=== PATIENT | female | born 1980 | race Caucasian/White ===

== ENCOUNTER → 2017-01-12 | Outpatient (CLI) | payer BC ==
[~2017-01-12] MED LIST: ACET-1311 PO; IBUP-1050 PO; PRENTAB26 PO
--- NOTE | 2017-01-12 09:01 | DIAGNOSTIC IMAGING REPORT ---
LEFT FOOT MIN 3 VIEWS CLINICAL HISTORY: LEFT FOOT PAIN pain COMPARISON: None. DISCUSSION: The bones and joint spaces appear intact. There is no evidence of fracture, dislocation or bony disease. There is no evidence for soft tissue swelling. IMPRESSION: Negative study. Electronically signed by: Warren nEgel M.D. 01/12/2017 9:00 AM Dictated Date/Time: 01/12/2017 8:59 AM
== END | disposition home or self-care (01) ==
LOC: C.RDSM 08:47
PROVIDERS: ATTEND Internal Medicine
DX: M79.672 Pain in left foot (principal)

== ENCOUNTER 2019-04-26 09:14 | Observation (INO) ==
[2019-04-26] MEDS ORDERED: KETOROLAC 30 MG/ML VIAL IV STA (09:50)
[2019-04-26] MEDS ORDERED: SODIUM CHLORIDE 0.9% 1000ML 1,000 ML IV ONE (09:50)
[2019-04-26] MEDS ORDERED: ONDANSETRON INJ 2 MG/ML 2 ML VIAL IV STA (09:50)
[2019-04-26 09:59] LABS: Hematocrit (blood only) 41.5 % (37-47); Hemoglobin 14.6 g/dL (12.0-16.0); Mean Corpuscular Hgb Conc 35.2 g/dL (32-36); Mean Corpuscular Volume 91.2 fL (80-100); Mean Platelet Volume 10.2 fL (7.4-10.4); Platelet Count 221 K/uL (130-400); RDW Coefficient of Variation 12.6 % (11.5-14.5); RDW Standard Deviation 41.9 fL (36.4-46.3); Red Blood Count 4.55 M/uL (4.2-5.4); White Blood Count 17.02 K/uL (4.8-10.8)
[2019-04-26 10:07] LABS: BUN Creatinine Ratio 14.2 (10-20); Calcium 9.2 mg/dl (8.5-10.1); Creatinine Clr Calc Pharmacy 113.5 ml/min; Est GFR (African American) 100.8; Est GFR (Non-African American) 86.9; Potassium 4.1 mmol/L (3.5-5.1)
[2019-04-26 10:10] LABS: Albumin Globulin Ratio 1.2 (0.9-2); Globulin 3.4 gm/dl (2.5-4.0); Total Protein 7.4 gm/dl (6.4-8.2)
[2019-04-26 10:21] LABS: Appearance Urine Clear (Clear); Bacteria Urine Automated 1+ (Negative); Bilirubin Urine Negative (Negative); Blood Urine Negative (Negative); Color Urine Dark Yellow; Epithelial Cell Urine Auto >30 /lpf (0-5); Glucose Urine UA Negative (Negative); Ketones Urine 2+ (Negative); Leukocyte Esterase Urine Trace (Negative); Nitrite Urine Negative (Negative); Protein Urine Negative (Negative); Specific Gravity Urine 1.024 (1.000-1.030); Urobilinogen Urine Negative (Negative)
[2019-04-26 10:21] LABS: Basophils # (auto) 0.03 K/uL (0-0.2); Basophils % (auto) 0.2 %; Eosinophils # (auto) 0.04 K/uL (0-0.5); Eosinophils % (auto) 0.2 %; Immature Granulocytes # (auto) 0.04 K/uL (0.00-0.02); Immature Granulocytes % (auto) 0.2 %; Lymphocytes # (auto) 1.04 K/uL (1.2-3.4); Lymphocytes % (auto) 6.1 %; Monocytes % (auto) 5.9 %; Neutrophils # (auto) 14.87 K/uL (1.4-6.5); Neutrophils % (auto) 87.4 %
[2019-04-26 10:23] LABS: Pregnancy Test, Urine Negative (Negative)
[2019-04-26] MEDS ORDERED: IOVERSOL 100ml IV PRN (10:32)
[2019-04-26 10:36] LABS: RBC Urine Automated 0-4 /hpf (0-4)
[2019-04-26] MEDS ORDERED: MoRPHine SULFATE 4 MG/ML 1 ML CARP\\VIAL IV STA (10:43)
[2019-04-26] MEDS ORDERED: cefOXitin 1,000 MG/50 ML BAG IV STA (10:43)
[2019-04-26] MEDS ORDERED: SODIUM CHLORIDE 0.9% 1000ML 1,000 ML IV SCH (10:45)
--- NOTE | 2019-04-26 10:45 | CT Scan Report ---
CT OF THE ABDOMEN AND PELVIS WITH CONTRAST CLINICAL HISTORY: Abdominal pain. COMPARISON STUDY: None. TECHNIQUE: Following IV administration of 94 mL of Optiray-320, axial images of the abdomen and pelvi s were obtained from the lung bases to the proximal femurs. Images were reviewed in the axial, sagitt al, and coronal planes. IV contrast was administered without complication. Automated exposure contro l was utilized for the study. A dose lowering technique was utilized adhering to the principles of A THANH. FINDINGS: Lung bases are clear. The liver, spleen, adrenal glands, kidneys and pancreas are normal. T here is no biliary or pancreatic ductal dilatation. There is no hydronephrosis. The appendix is dilat ed, measuring 1.4 cm in caliber. There is extensive periappendiceal infiltration and fluid. No free a ir is present. Gas appears to be within the appendix. These findings suggest perforated appendicitis. The appendix is retrocecal in location. No rim-enhancing fluid collection to suggest an abscess is i dentified. Dominant follicle within the left ovary is noted. There is trace fluid within the pelvis. No suspicious osseous lesions are present. There is no evidence for a bowel obstruction. IMPRESSION: Findings suggestive of perforated acute appendicitis. Dilated retrocecal appendix with extensive enmanuel appendiceal inflammation. Discussed with Dr. Brenal at time of dictation. Electronically signed by: Rubens Kevin M.D. 04/26/2019 10:44 AM
--- NOTE | 2019-04-26 11:51 | History & Physical Bridge Note ---
Date of Service April 26, 2019 History & Physical Bridge Note I have examined the patient, reviewed the History & Physical and in the interval since the performance of the History & Physical I have noted the following changes of clinical significance: no changes noted pt examined acute appendicitis plan patria kent open r and c explained to pt
--- NOTE | 2019-04-26 12:07 | History & Physical Report ---
Date of Service April 26, 2019 Assessment & Plan (1) Appendicitis: Possible perforated appendicitis. Will plan for laparoscopic appendectomy, possible open appendectomy this afternonn. Mefoxin was given in the ED. History of Present Illness Primary Care Provider: Azael Kirk, 39 y/o female with pain across her mid abdomen began yesterday afternoon, she also became bloated while at work. Pain localized to the RLQ and persisted this morning so she came to the ED. Had hot and cold flashes overnight. No previous abdominal surgery. Allergies Allergy/AdvReac Type Severity Reaction Status Date / Time Sulfa (Sulfonamide Allergy Intermediate HIVES Unverified 04/26/19 10:27 Antibiotics) bacitracin Allergy Mild REDNESS Unverified 04/26/19 10:27 neomycin Allergy Mild REDNESS Unverified 04/26/19 10:27 polymyxin B Allergy Mild REDNESS Unverified 04/26/19 10:27 BACTRIM Allergy Unknown Unknown Uncoded 04/26/19 10:27 Home Medications Home Medications Medication Instructions Recorded Confirmed Type bismuth subsalicylate 2 tab PO QID 04/26/19 04/26/19 History [Pepto-Bismol] calcium carbonate [Tums] 400 mg PO BID 04/26/19 04/26/19 History ibuprofen [Advil] 400 mg PO Q6H PRN 04/26/19 04/26/19 History Past Med/Surg History Medical History shoulder No pertinent family history Surgical History No pertinent past surgical history Family History Other No pertinent family history Social History Preferred Language: Haitian Communication Ability: Effective Visual Impairment: No Limitations Hearing Ability: Normal Live Truck Technician Required: No Beliefs That Will Affect Care: None Current Living Situation: Spouse and Family current occupational status: employed Other Information That Helps Us Care for You: No Feels Safe at Home: Yes Safety Concerns: Feels Safe At This Time Smoking Status: Never smoker Do You Dip or Chew Tobacco: No Hx Alcohol Use: Yes (socially) Alcohol type: wine Hx Substance Use: No Review of Systems Constitutional: + fever, + chills and + anorexia Gastrointestinal: + abdominal pain and + bloating Physical Exam Constitutional: WD/WN, vitals as above Respiratory: normal respiratory effort, lungs clear to auscultation Cardiovascular: RRR, no murmur, no edema Gastrointestinal (Abdomen): Inspection/Auscultation: + abdomen distended Percussion/Palpation: + abdomen tender and + guarding Skin: no rashes, warm and dry Results & Data Vital Signs (Past 12 Hours) Vital Signs Temp Pulse Pulse Resp BP BP Pulse Ox 04/26/19 11:50 74 16 127/69 99 04/26/19 11:00 79 16 138/74 99 04/26/19 09:19 36.9 C 86 18 126/83 98 (1) Appendicitis Appendicitis type: unspecified Qualified Code(s): K37 - Unspecified appendicitis
[2019-04-26] MEDS ORDERED: PROMETHAZINE HCL 12.5 MG in SODIUM CHLORIDE 0.9% 50 ML IV PRN (12:20)
[2019-04-26] MEDS ORDERED: ePHEDrine sulfate 50 MG/ML AMP IV PRN (12:20)
[2019-04-26] MEDS ORDERED: NALOXONE HCL 0.4 MG/1 ML VIAL/CARP IV PRN (12:20)
[2019-04-26] MEDS ORDERED: ONDANSETRON INJ 2 MG/ML 2 ML VIAL IV PRN ×2 (12:20→14:38)
[2019-04-26] MEDS ORDERED: FLUMAZENIL 0.1 MG/1 ML 10 ML VIAL IV PRN (12:20)
[2019-04-26] MEDS ORDERED: LABETALOL HCL IV 5 MG/ML 20ML IV PRN (12:20)
[2019-04-26] MEDS ORDERED: ATROPINE SULFATE 0.1 MG/ML 10ML SYR IV PRN (12:20)
--- NOTE | 2019-04-26 12:20 | Anesthesiology Consultation ---
Date of Service April 26, 2019 Assessment & Plan Chart Review Chart Review: Acceptable Risk for Surgery and Patient NOT seen in Pre Admission Testing Consults Requested none ASA [id number] Proposed Anesthesia Anesthesia Type: General Risk / Benefits Reviewed With: PT / POA / Parent / Guardian, Accepts Plan and Informed Consent Obtained History Surgery Operation Date: 04/26/19 08:35 Proposed Procedures p Laparoscopic Appendectomy, Possible Open Appendectomy - Mio Brooks MD Height/Weight Height: 6 ft Weight: 92.2 kg Allergies Allergy/AdvReac Type Severity Reaction Status Date / Time Sulfa (Sulfonamide Allergy Intermediate HIVES Unverified 04/26/19 12:13 Antibiotics) bacitracin Allergy Mild REDNESS Unverified 04/26/19 12:13 neomycin Allergy Mild REDNESS Unverified 04/26/19 12:13 polymyxin B Allergy Mild REDNESS Unverified 04/26/19 12:13 BACTRIM Allergy Unknown Unknown Uncoded 04/26/19 12:13 Medications Home Medications Medication Instructions Recorded Confirmed Last Taken bismuth subsalicylate 2 tab PO QID 04/26/19 04/26/19 04/25/19 [Pepto-Bismol] calcium carbonate [Tums] 400 mg PO BID 04/26/19 04/26/19 04/25/19 ibuprofen [Advil] 400 mg PO Q6H PRN 04/26/19 04/26/19 04/25/19 Active Medications Generic Name Dose Route Start Last Admin Trade Name Freq PRN Reason Stop Dose Admin Ioversol 94 ml 04/26/19 10:32 04/26/19 10:32 Optiray 320 100ml IV 04/30/19 10:31 94 ml ONCE PRN Administration Interaction Checking NPO Date Last Intake of Fluids: 04/26/19 Time Last Intake of Fluids: 07:00 Date Last Intake of Solids: 04/25/19 Time Last Intake of Solids: 18:30 Past Medical History Medical History shoulder No pertinent family history Exercise / Class Metabolic Activity II 4-5 Yardwork/Stairs/Walk up hill Past Family History Family History Other No pertinent family history Past Surgical History Surgical History No pertinent past surgical history Past Anesthesia History No Hx of Anesthesia Complications and No Family Hx of Anesthesia Complications History of PONV No Hx of PONV and No Hx of Motion Sickness Social History Smoking Status: Current some day smoker Do You Dip or Chew Tobacco: No Hx Alcohol Use: Yes (socially) Alcohol type: wine alcohol intake frequency: a few times a week Alcohol Intake Frequency Comment: 1-2 glasses on 3-4 days per week Hx Substance Use: No Physical Exam Vital Signs Last Vital Signs Temp 37.1 C 04/26/19 12:06 Pulse 80 04/26/19 12:06 Resp 18 04/26/19 12:06 BP 125/72 04/26/19 12:06 Pulse Ox 97 04/26/19 12:06 Constitutional + obese ENMT Mouth: no dentition abnormality Thyromental Distance: > or= 3.5 Finger Breadths Mallampati Class: II Neck normal visual inspection and trachea midline; neck extension not limited Respiratory normal respiratory effort Auscultation: lungs clear to auscultation bilaterally Cardiovascular Rate/Rhythm: regular rate and regular rhythm Heart Sounds: no murmur Musculoskeletal Spine: normal cervical ROM Neurologic moves all extremities Motor/Sensory: no sensory deficit Psychiatric Orientation: alert and oriented x 3 Testing Laboratory Results 04/26/19 09:35 04/26/19 09:35 Urine Color Dark Yellow 04/26/19 10:07 Urine Appearance Clear (Clear) 04/26/19 10:07 Urine pH 6.0 (4.5-7.5) 04/26/19 10:07 Ur Specific [place] 1.024 (1.000-1.030) 04/26/19 10:07 Urine Protein Negative (Negative) 04/26/19 10:07 Urine Glucose (UA) Negative (Negative) 04/26/19 10:07 Urine Ketones 2+ (Negative) H 04/26/19 10:07 Urine Nitrite Negative (Negative) 04/26/19 10:07 Ur Leukocyte Esterase Trace (Negative) H 04/26/19 10:07 Urine WBC (Auto) 5-10 /hpf (0-5) H 04/26/19 10:07 Urine RBC (Auto) 0-4 /hpf (0-4) 04/26/19 10:07 U Hyaline Cast (Auto) 5-10 /lpf (0-5) H 04/26/19 10:07 U Epithel Cells (Auto) >30 /lpf (0-5) H 04/26/19 10:07 Urine Bacteria (Auto) 1+ (Negative) H 04/26/19 10:07 Urine Test Negative (Negative) 04/26/19 10:07 04/26/19 10:07 Urine Test Negative
[2019-04-26] MEDS ORDERED: NEOSTIGMINE METHYLSULFATE 5 MG/5 ML SYR ONE (12:23)
[2019-04-26] MEDS ORDERED: fentaNYL citrate 100 MCG/2 ML VIAL ONE ×2 (12:23)
[2019-04-26] MEDS ORDERED: GLYCOPYRROLATE 0.2 MG/ML VIAL ONE (12:23)
[2019-04-26] MEDS ORDERED: PROPOFOL IV EMULSION 10 MG/ML 20 ML VIAL IV ONE (12:23)
[2019-04-26] MEDS ORDERED: LIDOCAINE HCL 2% 2 ML VIAL/AMP(20MG/ML) INFIL ONE (12:23)
[2019-04-26] MEDS ORDERED: ONDANSETRON INJ 2 MG/ML 2 ML VIAL ONE ×2 (12:23→13:14)
[2019-04-26] MEDS ORDERED: DEXAMETHASONE SOD INJ 4 MG/ML VIAL ONE (12:23)
[2019-04-26] MEDS ORDERED: MIDAZOLAM HCL 1 MG/ML 2ML VIAL ONE (12:23)
[2019-04-26] MEDS ORDERED: LIDOCAINE/EPINEPHRINE 1% 20 ML VIAL ONE (12:32)
--- NOTE | 2019-04-26 13:12 | Post Operative Brief Note ---
Immediate Post Op Note v1 Date of Surgery April 26, 2019 Pre & Post Diagnosis Operation Date: 04/26/19 08:35 Pre-Op Diagnosis: acute appendicitis Post-Op Diagnosis: acute appendicitis, not ruptured Procedure Operation Date: 04/26/19 08:35 Actual Procedures p Laparoscopic Appendectomy(Not Applicable) - Moi Brooks MD Surgeon Mio Brooks MD Package Pick Up b sunny menjivar Estimated Blood Loss 10 Findings Consistent with Post-Op Diagnosis Drains Dmitri Drain (19 [id number])
[2019-04-26] MEDS ORDERED: SUCCINYLCHOLINE CHLORIDE 20 MG/ML 10 ML VIAL ONE (13:14)
[2019-04-26] MEDS ORDERED: ROCURONIUM BROMIDE 10 MG/ML 5 ML VIAL ONE (13:14)
--- NOTE | 2019-04-26 13:34 | Operative Report ---
Post Operative Report Pre & Post Diagnosis Operation Date: 04/26/19 08:35 Pre-Op Diagnosis: acute appendicitis Post-Op Diagnosis: acute appendicitis, not ruptured Procedure Operation Date: 04/26/19 08:35 Actual Procedures p Laparoscopic Appendectomy(Not Applicable) - Mio Brooks MD The patient was brought into the operating theater general endotracheal anesth esia systemic antibiotics on board abdomen was prepped Betadine solution properly draped timeout was had patient identified small incision was made supraumbilically sufficient enough to place a Veress needle followed by CO2 followed by 5 mm trocar camera followed we had some preperitoneal insufflation characteristically jelly-like appearance this point we placed a 5 mm right upper quadrant trocar with preemptive local analgesic we rotated the patient to the left slight Trendelenburg to see an acutely inflamed right lower quadrant the cecum were able to elevate the cecal cap this patient has some accessory fatty tissue in that area just inferior to the ileum going into the cecum and has some fibrosis fibrinous exudate over the Of the cecal colon and retroperitoneal this point was able to elevate it more than see what I thought was the appendix acutely inflamed one in the retroperitoneal area we converted the 5 mm umbilical port by enlarging the incision used a Alysia clamp to open it then placed an 11 mm trocar and use this port and positioned it intermediate between the symphysis pubis in the umbilical area under direct visualization with preemptive local analgesia a 5 mm inserted the camera was placed in that area and using the umbilical port in the right upper quadrant port was able to dissect up bluntly and acutely nonruptured appendix. We then created a window between the base of the appendix and the mesentery we were able then under direct visualization of the clip this with 10 mm clips completely freeing it and elevating the appendix from the cecum base. The base of the appendix was slightly thickened but not characteristically in acutely inflamed we at this point I was able to fire a blue application of the KRISH completely elevated the appendix from the cecal area. We checked the line and elliott on the cecum and appeared to be free of any oozing. The terminal volume was full well away from it. The appendix was then placed in an Endopouch and taken out intact through the umbilical port the area was irrigated and hemostasis was satisfactory the appendix grossly was not ruptured although radiographically may have been I recommended I put a plan to place a Dmitri drain which we did in the right gutter pelvic area coming out through the 5 mm port suprapubic area. We attached to skin edge with 2-0 silk individual trochars removed last the umbilical trocar closed the fascial stitch of the umbilical opening with 0 Vicryl interrupted [id number] 4-0 Monocryl subcuticular Steri-Strips applied procedure was tolerated well by the patient estimated blood loss 10 cc addendum Sekou menjivar present throughout the procedure and help with exposure camera work and retraction thank you Surgeon Mio Brooks MD Caramel Coloring Operator sekou menjivar Estimated Blood Loss 10 Findings Consistent with Post-Op Diagnosis Specimens appendix Description of Procedure merda I attest to the content of the Intraoperative Record and any orders documented therein. Any exceptions are noted below.
[2019-04-26] MEDS: HYDROmorphone INJ 1 MG/ML SYRINGE IV PRN ×4 (13:35→13:50)
--- NOTE | 2019-04-26 14:22 | Anesthesiology Progress Note ---
Date of Service April 26, 2019 Anesthesia Post Procedure Vital Signs Vital Signs: Temp Pulse Pulse Pulse Resp BP BP 04/26/19 14:15 36.6 C 63 16 109/61 04/26/19 14:05 63 16 119/69 04/26/19 13:55 68 16 116/69 04/26/19 13:45 69 16 117/63 04/26/19 13:35 69 16 120/69 04/26/19 13:28 36.9 C 77 16 116/60 04/26/19 12:06 37.1 C 80 18 125/72 04/26/19 11:50 74 16 127/69 04/26/19 11:00 79 16 138/74 04/26/19 09:19 36.9 C 86 18 126/83 Pulse Ox 04/26/19 14:15 95 04/26/19 14:05 96 04/26/19 13:55 93 04/26/19 13:45 100 04/26/19 13:35 100 04/26/19 13:28 100 04/26/19 12:06 97 04/26/19 11:50 99 04/26/19 11:00 99 04/26/19 09:19 98 Pain Intensity Abdomen: Pain Intensity: 6 Transfer of Care Handoff Completed per policy Notes Mental Status: alert / awake / arousable and participated in evaluation Patient Amnestic to Procedure: Yes Nausea / Vomiting: adequately controlled Pain: adequately controlled Airway Patency, RR, SpO2: stable & adequate BP & HR: stable & adequate Hydration State: stable & adequate Anesthetic Complications: no major complications apparent and Pt Satisfied with anesthetic care
[2019-04-26] MEDS ORDERED: MoRPHine SULFATE 4 MG/ML 1 ML CARP\\VIAL IV PRN (14:38)
[2019-04-26] MEDS ORDERED: MoRPHine SULFATE 2 MG/ML CARP IV PRN (14:38)
[2019-04-26] MEDS: cefOXitin 2,000 MG in DEXTROSE 5% 50 ML IV SCH ×2 (15:43→21:21)
[2019-04-26] MEDS: OXYCODONE/ACETAMINOPHEN 5mg/325mg TAB PO PRN ×2 (16:28→21:22)
--- NOTE | 2019-04-26 17:32 | Emergency Department Note ---
Entered by Charis Hoyos acting as a scribe for Garry Bernal MD History of Present Illness General Chief complaint: Abdominal Pain Stated complaint: APPENDICITIS Time Seen by Provider: 04/26/19 09:48 Source: patient Mode of arrival: ambulatory Limitations: no limitations History of Present Illness Onset (ago): day(s) (1200 yesterday) Location: abdomen (right lower) Pain Consistency: + other (worsening) Maximum Pain Intensity: 5 Quality: + other (She states that by the time she got home from work, her pants didnt fit anymore. ) Exacerbated By: + none (She states that she took Tylenol PM last night, which di d not help to alleviate her pain. ) Associated symptoms: + nausea/vomiting (The patient complains of nausea. The patient denies vomiting. ) and + other (The patient denies urinary symptoms and bowel symptoms. ) The patient is a 39 white female w/ PMHx shoulder who presents to the ED w/ CC of worsening right lower abdominal pain beginning 1200 yesterday. She states that by the time she got home from work, her pants did not fit anymore. The patient complains of nausea. The patient denies vomiting, urinary symptoms, and bowel symptoms. She states that she took Tylenol PM last night, which did not help to alleviate her pain. The patient notes that her last menstrual cycle was 21 days ago. The patient notes that she drinks socially. Home Medications Home Medications Medication Instructions Recorded Confirmed Type bismuth subsalicylate 2 tab PO QID 04/26/19 04/26/19 History [Pepto-Bismol] calcium carbonate [Tums] 400 mg PO BID 04/26/19 04/26/19 History ibuprofen [Advil] 400 mg PO Q6H PRN 04/26/19 04/26/19 History Allergies Allergy/AdvReac Type Severity Reaction Status Date / Time Sulfa (Sulfonamide Allergy Intermediate HIVES Unverified 04/26/19 12:13 Antibiotics) bacitracin Allergy Mild REDNESS Unverified 04/26/19 12:13 neomycin Allergy Mild REDNESS Unverified 04/26/19 12:13 polymyxin B Allergy Mild REDNESS Unverified 04/26/19 12:13 BACTRIM Allergy Unknown Unknown Uncoded 04/26/19 12:13 Past Med/Surg History Medical History shoulder No pertinent family history Surgical History No pertinent past surgical history Family History Other No pertinent family history Social History Preferred Language: Tongan Communication Ability: Effective Visual Impairment: No Limitations Hearing Ability: Normal [employer] Required: No Beliefs That Will Affect Care: None Current Living Situation: Spouse and Family current occupational status: employed Other Information That Helps Us Care for You: No Feels Safe at Home: Yes Safety Concerns: Feels Safe At This Time Smoking Status: Current some day smoker Do You Dip or Chew Tobacco: No Hx Alcohol Use: Yes (socially) Alcohol type: wine Hx Substance Use: No Review of Systems See HPI for pertinent positives & negatives. and A total of 10 systems reviewed and were otherwise negative Physical Exam Vital Signs Vital Signs - 24 hr 04/26/19 09:19 04/26/19 11:00 04/26/19 11:36 Temperature 36.9 C Temperature Source Oral Sepsis Recent Fever Within 48 Hours No Sepsis New/Unexplained Change in Mental Status No Sepsis Action Taken by Nursing No Action Required Pulse Rate 86 Pulse Rate [Apical] Pulse Rate [Finger] 79 Pulse Rhythm [Apical] Pulse Rhythm [Finger] Pulse Strength [Finger] Respiratory Rate 18 16 Respiratory Effort / Characteristics Non-Labored Respiratory Depth Normal Respiratory Pattern Blood Pressure 126/83 Blood Pressure [Left Arm] 138/74 Blood Pressure Mean 97 Blood Pressure Mean [Left Arm] 95 Blood Pressure Position [Left Arm] Pulse Oximetry 98 99 Oxygen Delivery Method Room Air Room Air Room Air Oxygen Flow Rate 04/26/19 11:50 04/26/19 12:06 04/26/19 13:28 Temperature 37.1 C 36.9 C Temperature Source Oral Temporal Artery Scan Sepsis Recent Fever Within 48 Hours Sepsis New/Unexplained Change in Mental Status Sepsis Action Taken by Nursing Pulse Rate 74 Pulse Rate [Apical] 77 Pulse Rate [Finger] 80 Pulse Rhythm [Apical] Regular Pulse Rhythm [Finger] Regular Pulse Strength [Finger] Normal Respiratory Rate 16 18 16 Respiratory Effort / Characteristics Non-Labored Spontaneous Non-Labored Spontaneous Respiratory Depth Normal Normal Respiratory Pattern Regular Regular Blood Pressure 127/69 Blood Pressure [Left Arm] 125/72 116/60 Blood Pressure Mean Blood Pressure Mean [Left Arm] 89 78 Blood Pressure Position [Left Arm] Lying Semi-fowlers Pulse Oximetry 99 97 100 Oxygen Delivery Method Room Air Room Air Oxymask Oxygen Flow Rate 10 GENERAL: Mildly uncomfortable in appearance, well nourished, NAD, non-toxic. EYE EXAM: Normal conjunctiva. PERRL, no anisocoria and EOM's grossly intact w/o pain. OROPHARYNX: Moist mucus membranes. Grossly normal dentition. NECK: Supple, no nuchal rigidity, no adenopathy, non-tender. no signs of meningismus. LUNGS: Clear to auscultation. Normal chest wall mechanics. HEART: NSR, no MRG. ABDOMEN: Abdomen soft, right sided abdominal pain, normo-active bowel sounds, no masses, no rebound or guarding, negative obturator, positive psoas. BACK: No CVA TTP. SKIN: No rashes and no bruising. UPPER EXTREMITIES: Upper extremities are grossly normal. LOWER EXTREMITIES: No pitting edema. No calf pain. NEURO EXAM: A&O x3, cranial nerves II-XII grossly intact, normal speech, moves all 4 extremities on command w/o issue. Course 0952: Past medical records reviewed. The patient was evaluated in room B5. A complete history and physical examination was performed. 1042: The patient has appendicitis. 1043: Call out to general surgery. 1051: I updated the patient on the results of her scans. 1109: I re-paged surgery. 1124: I reviewed the patient's case with Juan Jose Tavares PA-C General Surgery. Consultations Consultation #1: [id number]: I reviewed the patient's case with Juan Jose Tvaares PA-C General Surgery. Time: 11:24 Administered Medications Cefoxitin Sodium 2,000 mg/ (Dextrose) 60 mls @ 100 mls/hr IV Q6H TEETEE Stop: 04/27/19 14:37 Last Infusion: 04/26/19 16:24 Dose: 0 mls/hr Documented by: [id number] Admin: 04/26/19 15:43 Dose: 100 mls/hr Documented by: [id number] Oxycodone/Acetaminophen (Percocet 5mg/325mg) 1 tab PO Q4H PRN PRN Reason: MODERATE Pain (Scale 4,5,6) Stop: 05/10/19 14:37 Last Admin: 04/26/19 16:28 Dose: 1 tab Documented by: [id number] Discontinued Medications Hydromorphone HCl (Dilaudid) 0.25 mg IV Q5M PRN PRN Reason: PACU Use Only-Pain Stop: 04/26/19 17:20 Last Admin: 04/26/19 13:50 Dose: 0.25 mg Documented by: [id number] Admin: 04/26/19 13:45 Dose: 0.25 mg Documented by: [id number] Admin: 04/26/19 13:40 Dose: 0.25 mg Documented by: [id number] Admin: 04/26/19 13:35 Dose: 0.25 mg Documented by: [id number] Sodium Chloride (Nss 1000ml) 1,000 mls @ 999 mls/hr IV .Q1H1M ONE Stop: 04/26/19 10:50 Last Infusion: 04/26/19 11:13 Dose: 0 mls/hr Documented by: [id number] Admin: 04/26/19 10:05 Dose: 999 mls/hr Documented by: [id number] Cefoxitin Sodium (Mefoxin) 1,000 mg in 50 mls @ 100 mls/hr IV NOW STA Stop: 04/26/19 11:12 Last Infusion: 04/26/19 11:31 Dose: 0 mls/hr Documented by: [id number] Admin: 04/26/19 10:58 Dose: 100 mls/hr Documented by: [id number] Sodium Chloride (Nss 1000ml) 1,000 mls @ 125 mls/hr IV .Q8H TEETEE Stop: 05/26/19 10:44 Last Admin: 04/26/19 14:46 Dose: Not Given Documented by: [id number] Promethazine HCl 12.5 mg/ (Sodium Chloride) 50.5 mls @ 204 mls/hr IV ONCE PRN PRN Reason: PACU Use Only-Nausea/Vomiting Stop: 04/26/19 17:21 Last Infusion: 04/26/19 14:46 Dose: 0 mls/hr Documented by: [id number] Admin: 04/26/19 13:57 Dose: 204 mls/hr Documented by: [id number] Ioversol (Optiray 320 100ml) 94 ml IV ONCE PRN PRN Reason: Interaction Checking Stop: 04/30/19 10:31 Last Admin: 04/26/19 10:32 Dose: 94 ml Documented by: [id number] Ketorolac Tromethamine (Toradol) 30 mg IV NOW STA Stop: 04/26/19 09:51 Last Admin: 04/26/19 10:04 Dose: 30 mg Documented by: [id number] Lidocaine/Epinephrine (Xylocaine/Epinephrine 1%) Confirm Administered Dose 20 ml .ROUTE .STK-MED ONE Stop: 04/26/19 12:33 Last Admin: 04/26/19 13:06 Dose: 10 ml Documented by: [id number] Morphine Sulfate (Morphine Sulfate) 4 mg IV NOW STA Stop: 04/26/19 10:44 Last Admin: 04/26/19 11:46 Dose: Not Given Documented by: [id number] Ondansetron HCl (Zofran) 4 mg IV NOW STA Stop: 04/26/19 09:51 Last Admin: 04/26/19 10:04 Dose: 4 mg Documented by: [id number] Medical Decision Making Differential Diagnosis Differential diagnoses: Appendicitis, diverticulitis, PUD, biliary pathology, UTI, pancreatitis, obstruction, mesenteric ischemia, aortic pathology, infections, inflammatory bowel disease, renal colic, as well as others were entertained. Medical Records Attestation: I reviewed the patient's medical records. Home Medications Current Medication List: was personally reviewed by me Laboratory Data Attestation: I reviewed the patient's lab results. Result diagrams: 04/26/19 09:35 04/26/19 09:35 Lab Results 04/26/19 04/26/19 04/26/19 Range/Units 09:35 09:35 10:07 WBC 17.02 H (4.8-10.8) K/uL RBC 4.55 (4.2-5.4) M/uL Hgb 14.6 (12.0-16.0) g/dL Hct 41.5 (37-47) % MCV 91.2 (80-100) fL MCH 32.1 (25-34) pg MCHC 35.2 (32-36) g/dL RDW Std Deviation 41.9 (36.4-46.3) fL RDW Coeff of Den 12.6 (11.5-14.5) % Plt Count 221 (130-400) K/uL MPV 10.2 (7.4-10.4) fL Immature Gran % (Auto) 0.2 % Neut % (Auto) 87.4 % Lymph % (Auto) 6.1 % [place] % (Auto) 5.9 % Eos % (Auto) 0.2 % Baso % (Auto) 0.2 % Immature Gran # (Auto) 0.04 H (0.00-0.02) K/uL Neut # (Auto) 14.87 H (1.4-6.5) K/uL Lymph # (Auto) 1.04 L (1.2-3.4) K/uL [place] # (Auto) 1.00 H (0.11-0.59) K/uL Eos # (Auto) 0.04 (0-0.5) K/uL Baso # (Auto) 0.03 (0-0.2) K/uL Sodium 139 (136-145) mmol/L Potassium 4.1 (3.5-5.1) mmol/L Chloride 106 (98-107) mmol/L Carbon Dioxide 27 (21-32) mmol/L Anion Gap 6.0 (3-11) BUN 12 (7-18) mg/dl Creatinine 0.84 (0.6-1.2) mg/dl Est Cr Clr Drug Dosing 113.5 ml/min Est GFR ( Amer) 100.8 Est GFR (Non-Af Amer) 86.9 BUN/Creatinine Ratio 14.2 (10-20) Glucose 113 H (70-99) mg/dl Calcium 9.2 (8.5-10.1) mg/dl Total Bilirubin 1.0 (0.2-1) mg/dl AST 12 L (15-37) U/L ALT 23 (12-78) U/L Alkaline Phosphatase 68 (45-117) U/L Total Protein 7.4 (6.4-8.2) gm/dl Albumin 4.0 (3.4-5.0) gm/dl Globulin 3.4 (2.5-4.0) gm/dl Albumin/Globulin Ratio 1.2 (0.9-2) Lipase 74 (73-393) U/L Urine Color Dark Yellow Urine Appearance Clear (Clear) Urine pH 6.0 (4.5-7.5) Ur Specific Mather 1.024 (1.000-1.030) Urine Protein Negative (Negative) Urine Glucose (UA) Negative (Negative) Urine Ketones 2+ H (Negative) Urine Blood Negative (Negative) Urine Nitrite Negative (Negative) Urine Bilirubin Negative (Negative) Urine Urobilinogen Negative (Negative) Ur Leukocyte Esterase Trace H (Negative) Urine WBC (Auto) 5-10 H (0-5) /hpf Urine RBC (Auto) 0-4 (0-4) /hpf U Hyaline Cast (Auto) 5-10 H (0-5) /lpf U Epithel Cells (Auto) >30 H (0-5) /lpf Urine Bacteria (Auto) 1+ H (Negative) Ur Renal Epithelial Cell Not Reportable Urine Yeast Present A (None Prsent) Urine Test (Negative) 04/26/19 Range/Units 10:07 WBC (4.8-10.8) K/uL RBC (4.2-5.4) M/uL Hgb (12.0-16.0) g/dL Hct (37-47) % MCV (80-100) fL MCH (25-34) pg MCHC (32-36) g/dL RDW Std Deviation (36.4-46.3) fL RDW Coeff of Den (11.5-14.5) % Plt Count (130-400) K/uL MPV (7.4-10.4) fL Immature Gran % (Auto) % Neut % (Auto) % Lymph % (Auto) % [place] % (Auto) % Eos % (Auto) % Baso % (Auto) % Immature Gran # (Auto) (0.00-0.02) K/uL Neut # (Auto) (1.4-6.5) K/uL Lymph # (Auto) (1.2-3.4) K/uL [place] # (Auto) (0.11-0.59) K/uL Eos # (Auto) (0-0.5) K/uL Baso # (Auto) (0-0.2) K/uL Sodium (136-145) mmol/L Potassium (3.5-5.1) mmol/L Chloride (98-107) mmol/L Carbon Dioxide (21-32) mmol/L Anion Gap (3-11) BUN (7-18) mg/dl Creatinine (0.6-1.2) mg/dl Est Cr Clr Drug Dosing ml/min Est GFR ( Amer) Est GFR (Non-Af Amer) BUN/Creatinine Ratio (10-20) Glucose (70-99) mg/dl Calcium (8.5-10.1) mg/dl Total Bilirubin (0.2-1) mg/dl AST (15-37) U/L ALT (12-78) U/L Alkaline Phosphatase (45-117) U/L Total Protein (6.4-8.2) gm/dl Albumin (3.4-5.0) gm/dl Globulin (2.5-4.0) gm/dl Albumin/Globulin Ratio (0.9-2) Lipase (73-393) U/L Urine Color Urine Appearance (Clear) Urine pH (4.5-7.5) Ur Specific Mather (1.000-1.030) Urine Protein (Negative) Urine Glucose (UA) (Negative) Urine Ketones (Negative) Urine Blood (Negative) Urine Nitrite (Negative) Urine Bilirubin (Negative) Urine Urobilinogen (Negative) Ur Leukocyte Esterase (Negative) Urine WBC (Auto) (0-5) /hpf Urine RBC (Auto) (0-4) /hpf U Hyaline Cast (Auto) (0-5) /lpf U Epithel Cells (Auto) (0-5) /lpf Urine Bacteria (Auto) (Negative) Ur Renal Epithelial Cell Urine Yeast (None Prsent) Urine Test Negative (Negative) Imaging Data Radiologist's Impression: Radiology results as stated below per my review and the radiologist's interpretation: CT OF THE ABDOMEN AND PELVIS WITH CONTRAST CLINICAL HISTORY: Abdominal pain. COMPARISON STUDY: None. TECHNIQUE: Following IV administration of 94 mL of Optiray-320, axial images of the abdomen and pelvis were obtained from the lung bases to the proximal femurs. Images were reviewed in the axial, sagittal, and coronal planes. IV contrast was administered without complication. Automated exposure control was utilized for the study. A dose lowering technique was utilized adhering to the principles of ALARA. FINDINGS: Lung bases are clear. The liver, spleen, adrenal glands, kidneys and pancreas are normal. There is no biliary or pancreatic ductal dilatation. There is no hydronephrosis. The appendix is dilated, measuring 1.4 cm in caliber. There is extensive periappendiceal infiltration and fluid. No free air is present. Gas appears to be within the appendix. These findings suggest perforated appendicitis. The appendix is retrocecal in location. No rim- enhancing fluid collection to suggest an abscess is identified. Dominant follicle within the left ovary is noted. There is trace fluid within the pelvis. No suspicious osseous lesions are present. There is no evidence for a bowel obstruction. IMPRESSION: Findings suggestive of perforated acute appendicitis. Dilated retrocecal appendix with extensive periappendiceal inflammation. Discussed with Dr. Bernal at time of dictation. Electronically signed by: Rubens Kevin M.D. 04/26/2019 10:44 AM Dictated: 04/26/19 1038 Transcribed: 04/26/19 1038 Blood Pressure Blood Pressure Findings: Normal blood pressure MDM Narrative The patient is a 39 white female w/ PMHx shoulder who presents to the ED w/ CC of worsening right lower abdominal pain beginning 1200 yesterday. Patient was seen and evaluated the bedside. The patient was complaining some right-sided lower abdominal discomfort beginning yesterday. The patient is tender. Patient did have blood work completed which shows a white count of 17. The patient's other blood work is fairly unremarkable. Patient's CT scan does show concern for ruptured appendicitis. Patient was ordered IV fluids to be n.p.o. and additional medications for pain control. Antibiotic's were ordered. I did speak the on-call surgeon who agreed to evaluate the patient take the patient to the OR. Impression & Plan Appendicitis, Abdominal pain Discharge Plan Visit Data *Final* Discharge Date/Time: 04/26/19 11:52 Chief Complaint: Abdominal Pain Stated Complaint: APPENDICITIS ED Provider: Garry Bernal Discharge Problem: Appendicitis, Abdominal pain Patient Disposition: Still a Patient Discharge Instructions Interventions: ED Discharge Assessment Last Done: 04/26/19 11:50 Discharge Problem: Appendicitis Qualifiers: Appendicitis type: unspecified Qualified Code(s): K37 - Unspecified appendicitis Abdominal pain Qualifiers: Abdominal location: right lower quadrant Qualified Code(s): R10.31 - Right lower quadrant pain The scribe's documentation has been prepared under my direction and personally reviewed by me in its entirety. I confirm that the note above accurately reflects all work, treatment, procedures, and medical decision making performed by me.
[2019-04-26] MEDS: ACETAMINOPHEN 325 MG TAB PO PRN (19:19)
[2019-04-26] MEDS: LACTATED RINGER'S 1,000 ML IV SCH (21:21)
[2019-04-27] MEDS: OXYCODONE/ACETAMINOPHEN 5mg/325mg TAB PO PRN ×3 (02:50→13:55)
[2019-04-27] MEDS: cefOXitin 2,000 MG in DEXTROSE 5% 50 ML IV SCH ×2 (02:50→11:20)
[2019-04-27] MEDS: ACETAMINOPHEN 325 MG TAB PO PRN (06:04)
[2019-04-27 06:36] LABS: Basophils # (auto) 0.01 K/uL (0-0.2); Basophils % (auto) 0.1 %; Eosinophils # (auto) 0.05 K/uL (0-0.5); Eosinophils % (auto) 0.4 %; Hematocrit (blood only) 34.2 % (37-47); Hemoglobin 11.9 g/dL (12.0-16.0); Immature Granulocytes # (auto) 0.04 K/uL (0.00-0.02); Immature Granulocytes % (auto) 0.3 %; Lymphocytes # (auto) 1.18 K/uL (1.2-3.4); Lymphocytes % (auto) 9.5 %; Mean Corpuscular Hgb Conc 34.8 g/dL (32-36); Mean Corpuscular Volume 91.9 fL (80-100); Monocytes # (auto) 0.99 K/uL (0.11-0.59); Neutrophils # (auto) 10.17 K/uL (1.4-6.5); Neutrophils % (auto) 81.7 %; Platelet Count 200 K/uL (130-400); RDW Coefficient of Variation 12.8 % (11.5-14.5); Red Blood Count 3.72 M/uL (4.2-5.4); White Blood Count 12.44 K/uL (4.8-10.8)
[2019-04-27] MEDS: LACTATED RINGER'S 1,000 ML IV SCH ×2 (06:52→12:16)
[2019-04-27 07:14] LABS: BUN Creatinine Ratio 10.2 (10-20); Calcium 8.4 mg/dl (8.5-10.1); Creatinine Clr Calc Pharmacy 136.2 ml/min; Est GFR (African American) 125.6; Est GFR (Non-African American) 108.4; Potassium 3.8 mmol/L (3.5-5.1)
--- NOTE | 2019-04-27 08:24 | Anesthesiology Progress Note ---
Date of Service April 27, 2019 Anesthesia Post Procedure Vital Signs Vital Signs: Temp Pulse Pulse Pulse Pulse Resp BP 04/27/19 07:04 36.8 C 69 16 04/27/19 02:40 37.1 C 62 14 04/26/19 19:52 37.1 C 74 18 04/26/19 17:39 36.7 C 75 16 04/26/19 16:32 36.7 C 81 18 04/26/19 15:27 37.1 C 72 16 04/26/19 15:00 36.9 C 04/26/19 14:38 37 C 66 16 04/26/19 14:15 36.6 C 63 16 04/26/19 14:05 63 16 04/26/19 13:55 68 16 04/26/19 13:45 69 16 04/26/19 13:35 69 16 04/26/19 13:28 36.9 C 77 16 04/26/19 12:06 37.1 C 80 18 04/26/19 11:50 74 16 127/69 04/26/19 11:00 79 16 04/26/19 09:19 36.9 C 86 18 126/83 BP BP Pulse Ox 04/27/19 07:04 114/71 96 04/27/19 02:40 110/55 L 97 04/26/19 19:52 100/62 95 04/26/19 17:39 110/76 97 04/26/19 16:32 121/75 96 04/26/19 15:27 106/67 98 04/26/19 15:00 115/74 98 04/26/19 14:38 107/66 98 04/26/19 14:15 109/61 95 04/26/19 14:05 119/69 96 04/26/19 13:55 116/69 93 04/26/19 13:45 117/63 100 04/26/19 13:35 120/69 100 04/26/19 13:28 116/60 100 04/26/19 12:06 125/72 97 04/26/19 11:50 99 04/26/19 11:00 138/74 99 04/26/19 09:19 98 Pain Intensity Abdomen: Pain Intensity: 3 Notes Mental Status: alert / awake / arousable and participated in evaluation Patient Amnestic to Procedure: Yes Nausea / Vomiting: adequately controlled Pain: adequately controlled Airway Patency, RR, SpO2: stable & adequate BP & HR: stable & adequate Hydration State: stable & adequate Anesthetic Complications: no major complications apparent
--- NOTE | 2019-04-27 10:31 | Surgery Progress Note ---
Date of Service April 27, 2019 Assessment & Plan (1) Appendicitis: POD 1 lap appy seen with Dr. Cecilia cao drain removed d/c home on po abx Subjective advancing diet, ambulating Physical Exam Gastrointestinal (Abdomen): Inspection/Auscultation: + abdominal surgical incision (dry) and + abdominal surgical drain present (10 cc serous); abdomen not distended Results & Data Vital Signs (Past 12 Hours) Vital Signs Temp Pulse Resp BP Pulse Ox 04/27/19 07:04 36.8 C 69 16 114/71 96 04/27/19 02:40 37.1 C 62 14 110/55 L 97 (1) Appendicitis Appendicitis type: unspecified Qualified Code(s): K37 - Unspecified appendicitis
--- NOTE | 2019-04-27 11:43 | Discharge Summary ---
Date of Service April 27, 2019 Admission HPI Per Admitting Provider 39 y/o female with pain across her mid abdomen began yesterday afternoon, she also became bloated while at work. Pain localized to the RLQ and persisted this morning so she came to the ED. Had hot and cold flashes overnight. No previous abdominal surgery. Principal Diagnosis 1. Acute appendicitis Discharge Exam Gastrointestinal (Abdomen) Inspection/Auscultation: + abdominal surgical incision (clean, dry) and + abdominal surgical drain present (10 cc serous) Discharge Data Allergies Allergy/AdvReac Type Severity Reaction Status Date / Time Sulfa (Sulfonamide Allergy Intermediate HIVES Unverified 04/26/19 12:13 Antibiotics) bacitracin Allergy Mild REDNESS Unverified 04/26/19 12:13 neomycin Allergy Mild REDNESS Unverified 04/26/19 12:13 polymyxin B Allergy Mild REDNESS Unverified 04/26/19 12:13 BACTRIM Allergy Unknown Unknown Uncoded 04/26/19 12:13 Consultations 04/26/19 10:43 ED Decision to Admit Stat Procedures Performed Operation Date: 04/26/19 08:35 Actual Procedures p Laparoscopic Appendectomy(Not Applicable) - Mio Brooks MD Ordered Studies 04/26/19 09:50 CT abd pelvis IV con only Stat Hospital Course (1) Appendicitis: 39 y/o female presented to the ED with 1 day history of abdominal pain localizing the RLQ. White cell count was 17,[address] was consistent with appendicitis, possibly perforated. She was taken to the operating room for laparoscopic appendectomy. She did have appendicitis but was not perforated. A dmitri drain was placed given the amount of inflammation. She was observed overnight on the surgical floor and continued on Mefoxin. Her white count improved to 12,000 the next morning. Dmitri drainage was minimal and was serous and the drain was removed. She was able to increase diet and activity during the day and was stable for discharge in the afternoon on oral antibiotics. Total Time Total Time Spent Total Time Spent (In Minutes): 15 Discharge Plan Discharge Items Patient Disposition: Home - Self-Care Reason For Visit: APPENDICITIS Discharge Diagnosis: laparoscopic appendectomy Discharge Goals: Decrease discomfort Activity: Per 'Additional Instructions' section Lifting: No more than 10 pounds Bathing Comment: ok to shower, no swimming for 1 week Driving/Machine Use: Resume 3 days after discharge Non-emergency contact: Surgeon Call non-emergency contact if: you have any medication questions, your pain is not controlled, you have a fever, your temperature is above 101.5, your wound has increased redness and your wound has increased drainage Follow-up/Referrals: Mio Brooks MD [Surgeon] - (Call to make an appt in 1 week) Azael Kirk, [Primary Care Provider] - Diet: Regular Addtl Provider Instructions: Prescriptions: New oxycodone-acetaminophen [Percocet] 5-325 mg tablet 1 - 2 tab PO Q4H PRN (Reason: pain) Qty: 15 RF: 0 amoxicillin-pot clavulanate [Augmentin] 875-125 mg tablet 1 tab PO BID Qty: 14 RF: 0 fluconazole [Diflucan] 150 mg tablet 150 mg PO Q3D Qty: 2 RF: 0 Continued calcium carbonate [Tums] 200 mg calcium (500 mg) Tablet,Chewable 400 mg PO BID RF: 0 ibuprofen [Advil] 200 mg Tablet 400 mg PO Q6H PRN (Reason: Pain) RF: 0 Pepto-Bismol 262 mg Tablet 2 tab PO QID RF: 0 Stand-Alone Forms: Call Back Authorization, [facility], Work/School Release (Inpt) Discharge Orders: Discharge Order (Routine); Ordered 04/27/19 Ordered By: Juan Jose Nava Jr Admission Data Admit Date/Time: 04/26/19 13:32 Attending Provider: Mio Brooks Admit Provider: Mio Brooks Primary Care Provider: Azael Kirk Other Providers: Mio Brooks ; Wiley Davila Service: Surgical Services
== END 2019-04-27 14:21 | disposition home or self-care (01) ==
LOC: ED 09:14 → 3N 11:52 → OR 11:52